=== PATIENT | female | born 1955 | race Two or more races ===

== ENCOUNTER → 2024-11-01 | Outpatient (CLI) | payer MEDICARE, MEDICAID, SELFPAY ==
--- NOTE | 2024-11-01 09:15 | XR_ITS ---
Examination: Screening digital mammography, bilateral Computer aided detection 3-D breast Tomosynthesis, bilateral Date and time of exam: November 01, 2024 0844 hours Compared to mammograms dating to March 07, 2013 Indication: Screening Technique: Nonmagnified MLO, CC views of the breasts to been obtained, reconstructed from 3-D Tomosynthesis images. R2 computer aided detection program utilized for evaluation of suspicious masses and/or abnormal calcifications. 3-D Tomosynthesis images obtained. Findings: Scattered areas of fibroglandular density. Benign calcifications. No interval suspicious masses Impression: BI-RADS category II: Benign Findings. Recommend 1 year follow-up mammogram.
== END | disposition home or self-care (01) ==
LOC: CDIM 08:36
PROVIDERS: Referring Provider Nurse Practitioner Family; Visit Provider Nurse Practitioner Family
DX: Z12.31 Encounter for screening mammogram for malignant neoplasm of breast (principal); R92.323 Mammographic fibroglandular density, bilateral breasts; R92.1 Mammographic calcification found on diagnostic imaging of breast
CPT/HCPCS: 77063; 77067

== ENCOUNTER 2025-05-24 10:50 | Day surgery (SDC) | payer MEDICARE, MEDICAID, SELFPAY ==
[2025-05-23 13:09] VITALS: BMI 28.3
[2025-05-24] VITALS (9 sets, daily range): BP systolic 113–153; BP diastolic 66–89; PULSE 75–88; RESP 13–24; TEMP 36.2–36.3; O2SAT 94–100; BMI 27.9
[2025-05-24] MEDS: RINGERS LACTATED 1000 ML 1,000 ML 125 ML IV (12:15)
[2025-05-24] MEDS: fentaNYL CIT INJ 50 mCg/ML AMP 2ML (ASD USE ONLY) IVP (12:18)
[2025-05-24] MEDS: MIDAZOLAM INJ 1 MG/ML VIAL 2 ML (ASD USE ONLY) 2 MG IVP (12:18)
== END 2025-05-24 13:27 | disposition home or self-care (01) ==
PROVIDERS: PCP Internal Medicine; Referring Provider Internal Medicine Gastroenterology; Visit Provider Internal Medicine Gastroenterology
PROC: 0DBE8ZX Excision of Large Intestine, Via Natural or Artificial Opening Endoscopic, Diagnostic (ICD-10-PCS; CPT 45380; principal; 2025-05-24 12:00)
DX: D12.5 Benign neoplasm of sigmoid colon (principal); K57.30 Diverticulosis of large intestine without perforation or abscess without bleeding; I10 Essential (primary) hypertension; K64.8 Other hemorrhoids
CPT/HCPCS: 45380; A4217; J2250; J3010; J7120